=== PATIENT | male | born 1980 | race Caucasian/White ===

== ENCOUNTER 2017-01-12 09:26 | Emergency (ER) | payer OTHER ==
[~2017-01-12 09:26] MED LIST: BACTRIM DS 8001 TAB PO; BACTROBAN OINT.15 GM TOP; DELTASONE20 MG PO; DOXYCYCLINE MO100 MG PO; NEURONTIN300 M1 PO; PERCOCET 325 MG1 TA2 PO; PERCOCET 5-3251 EACH PO; VICODIN5-300 PO
[2017-01-12 09:29] VITALS: BP 138/88
[2017-01-12] MEDS ORDERED: PERCOCET 5-3251 EACH PO (09:49)
--- NOTE | 2017-01-12 09:50 | ED THROAT/DENTAL COMPLAINT ---
History of Present Illness General Chief Complaint: Sore Throat, Dental Pain Stated Complaint: DENTAL PAIN Source: patient Exam Limitations: no limitations Vital Signs & Intake/Output Vital Signs & Intake/Output Vital Signs Date Time Temp Pulse Resp B/P B/P Pulse O2 O2 Flow FiO2 Mean Ox Delivery Rate 01/12 0929 97.9 84 16 138/88 99 Room Air Allergies Coded Allergies: NO KNOWN ALLERGIES (07/08/11) Reconcile Medications Gabapentin (Neurontin) 300 MG CAPSULE 1 CAP PO DAILY SHINGLES Oxycodone HCl/Acetaminophen (Percocet 5-325 MG Tablet) 5 MG-325 MG TABLET 1 TAB PO Q6P PRN pain Oxycodone HCl/Acetaminophen (Percocet 5-325 MG Tablet) 1 EACH TABLET 1-2 TAB PO Q6P PRN PAIN Triage Note: PT STATES HE THINKS HE HAS AN ABCESSED TOOTH. SAW DENTIST AND PUT ON ANTIBIOTICS BUT STATES HE IS IN TOO MUCH PAIN. Triage Nurses Notes Reviewed? yes HPI: Patient presents for evaluation of worsening right dental and right facial pain that began gradually over the past few days. Patient states he has had a broken tooth over the past 2 months or so but due to financial considerations and lack of insurance has not been treated. He saw a dentist 2 days ago and is scheduled to have the right canine tooth pulled on Saturday (2 days from now). He has been trying to tablets of ibuprofen every 6 hours without improvement. He denies any associated fever, cold symptoms, visual changes or trouble swallowing. The pain has been constant and severe and aching. Nothing seems to make it feel better. The pain continues in the emergency department. He states he also has noticed some right facial swelling over the past 48 hours as well. Past History Travel History Traveled to [place] past 21 day No Medical History Any Pertinent Medical History? 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 No Review of Systems Review of Systems Constitutional: Reports: no symptoms. EENTM: Reports: see HPI. Respiratory: Reports: no symptoms. Cardiovascular: Reports: no symptoms. GI: Reports: no symptoms. Genitourinary: Reports: no symptoms. Musculoskeletal: Reports: no symptoms. Skin: Reports: see HPI. Neurological/Psychological: Reports: no symptoms. Hematologic/Endocrine: Reports: no symptoms. Immunologic/Allergic: Reports: no symptoms. All Other Systems: Reviewed and Negative Physical Exam Physical Exam Mouth/Throat: see below Comments: Gen.: Well-nourished, well-developed, no acute respiratory distress. Head: Normocephalic, atraumatic. Eyes: Normal inspection bilaterally, extraocular movements intact Ears: Normal inspection bilaterally Nose: Normal inspection Throat/mouth : Moist mucosa, diffusely poor dentition with no overt signs of gingivitis. Right upper canine very tender to percussion. No other significant abnormality noted. Managing secretions well. Face: Swelling over the right zygoma Neck: Supple, full range of motion, no goiter Lungs: Quiet respirations Back: Normal range of motion Extremities: Normal range of motion grossly, no cyanosis of the upper extremities Neurologic: Cranial nerves grossly intact, speech is clear Skin: warm and dry Psychiatric: Calm, cooperative, no apparent delusions or hallucinations Lymphatic: No cervical lymphadenopathy. Core Measures ACS in differential dx? No Severe Sepsis Present: No Septic Shock Present: No Progress Differential Diagnosis: carious tooth, epiglottitis, Ludwigs angina, odontogenic abscess, ronda-tonsillar abscess Plan of Care: cont abx, ibuprofen and narcotics, dmd f/u Comments: Patient declined CAT scan to more fully investigate the possibility of a sinus infection. Patient is convinced there is an infectious process and feels comfortable with continuing treatment with the clindamycin and his follow-up appointment with the dentist on Saturday for tooth extraction. Departure Departure Disposition: HOME OR SELF CARE Condition: Stable Clinical Impression Primary Impression: Dental abscess Secondary Impressions: Sinusitis Qualifiers: Sinusitis location: maxillary Chronicity: acute Recurrence: not specified as recurrent Qualified Code: J01.00 - Acute maxillary sinusitis, unspecified Referrals: PATRIA HLAEY,RAGHU Simmons (PCP/Family) Additional Instructions: Continue the clindamycin. Continue ibuprofen at 600 mg every 6 hours for pain. Add Percocet if necessary for pain. Follow-up with your dentist on Saturday as scheduled. Return to emergency department immediately if fever, inability to swallow visual disturbances or any other concerns or worsening. Thank you for choosing the [facility] Emergency Department for your care. It was a pleasure to serve you today. Rashaun Willams M.D. [facility] Departure Forms: Customer Survey General Discharge Information Prescriptions: Current Visit Scripts Oxycodone HCl/Acetaminophen (Percocet 5-325 MG Tablet) 1 TAB PO Q6P PRN pain #10 TAB
== END 2017-01-12 10:16 ==
LOC: ERH 09:26
DX: K04.7 Periapical abscess without sinus (principal); J32.9 Chronic sinusitis, unspecified